=== PATIENT | male | born 1995 | race Caucasian/White ===

== ENCOUNTER 2018-04-25 21:42 | Emergency (ER) | payer OTHER ==
[~2018-04-25] VITALS: Ht 180.3 cm; Wt 98.1 kg
[2018-04-25 21:45] VITALS: BP 139/65
[2018-04-25] MEDS ORDERED: PROPARACAINE OPHTH 0.5%, 15ML ONE (22:22)
[2018-04-25] MEDS ORDERED: PROPARACAINE OPHTH 0.5%, 15ML EACHEYE ONE (22:30)
== END 2018-04-26 00:01 | disposition home or self-care (01) ==
LOC: ED 23:00
DX: T15.01XA Foreign body in cornea, right eye, initial encounter (principal); X58.XXXA Exposure to other specified factors, initial encounter; Y93.89 Activity, other specified; Y99.8 Other external cause status; Y92.89 Other specified places as the place of occurrence of the external cause
CPT/HCPCS: 65222; 99284